=== PATIENT | female | born 1975 | race Caucasian/White ===

== ENCOUNTER → 2021-07-25 08:35 | Outpatient (ROUT) | payer MEDICARE, MEDICAID, SELFPAY ==
[2021-07-25 10:13] LABS: Add Manual Diff / Slide Review NO; Basophils Absolute Auto 0 /uL (0-100); Basophils Percent Auto 0.7 % (0-2); Eosinophils Absolute Auto 200 /uL (0-450); Eosinophils Percent Auto 2.5 % (2-4); Hematocrit 37.5 % (36-46); Hemoglobin 12.6 g/dL (12.0-16.0); Lymphocytes Absolute Auto 3200 /uL (1100-4500); Lymphocytes Percent Auto 43.6 % (25-40); Mean Corpuscular HGB Conc 33.5 % (30-36); Mean Corpuscular Hemoglobin 32.3 PG (26-34); Mean Corpuscular Volume 96.4 fL (80-100); Monocytes Absolute Auto 800 /uL (0-900); Monocytes Percent Auto 11.1 % (3-14); Neutrophils Absolute Auto 3100 /uL (1500-7000); Neutrophils Percent Auto 42.1 % (50-75); Platelet Count 333 X10^3/uL (150-400); Red Blood Cell Count 3.89 X10^6/uL (4.0-5.2); Red Cell Distribution Width 13.4 % (11.6-14.8); White Blood Cell Count 7.4 X10^3/uL (4.5-11.0)
[2021-07-25 10:28] LABS: Alanine Aminotransferase 13 IU/L (<35); Albumin 4.1 g/dL (3.5-5.0); Albumin Globulin Ratio 1.5 (1.0-2.8); Alkaline Phosphatase 45 U/L (38-126); Aspartate Aminotransferase 29 IU/L (14-36); BUN Creatinine Ratio 34.7 (6-22); Bilirubin Total 0.4 mg/dL (0.2-1.3); Blood Urea Nitrogen 17 mg/dL (7-17); Calcium 9.3 mg/dL (8.4-10.2); Carbon Dioxide 26 mmol/L (22-32); Chloride 103 mmol/L (98-107); Cholesterol 205 mg/dL (140-199); Estimated Glomerular Filt Rate > 60.0 mL/min (>60); Globulin 2.7 g/dL (1.7-4.1); Glucose 91 mg/dL (70-100); HDL Cholesterol 66 mg/dL (40-60); HEMOLYSIS < 15 (0-50); LDL Cholesterol Calculated 126 mg/dL (<100); Potassium 4.1 mmol/L (3.4-5.1); Sodium 137 mmol/L (137-145); Total Protein 6.8 g/dL (6.3-8.2); Triglycerides 66 mg/dL (35-150)
[2021-07-25 10:30] LABS: Iron 119 ug/dL (37-170)
[2021-07-26 06:41] LABS: Valproic Acid (Depakene) Total 64 ug/mL (50-100)
== END ==
PROVIDERS: Visit Provider Physician Assistant
DX: Z51.81 Encounter for therapeutic drug level monitoring (principal)
CPT/HCPCS: 36415; 80053; 80061; 80164; 83540; 85025

== ENCOUNTER 2021-07-31 11:40 | Emergency (ER) | payer MEDICARE, MEDICAID, SELFPAY ==
[2021-07-31] VITALS (11 sets, daily range): BP systolic 120–144; BP diastolic 64–70; PULSE 93–104; RESP 18–23; TEMP 37.6; O2SAT 94–98; BMI 28.0
--- NOTE | 2021-07-31 11:57 | DI.RAD.S_ITS ---
PROCEDURE: XR CHEST 1V INDICATIONS: chest pain TECHNIQUE: One view of the chest was acquired. COMPARISON: None. FINDINGS: Surgical changes and devices: None. Lungs and pleura: There is blunting of the left costophrenic angle. No pneumothorax is seen. No focal infiltrates are seen. The right lung appears clear. Mediastinum: Mediastinal contours appear normal. Heart size is normal. Bones and chest wall: No suspicious bony lesions. Overlying soft tissues appear unremarkable. IMPRESSION: Blunting of the left costophrenic angle is seen, which is attributed to a small pleural effusion. Dictated by: Krzysztof Ortiz M.D. on 07/31/2021 at 11:21 Approved by: Krzysztof Ortiz M.D. on 07/31/2021 at 11:22
[2021-07-31 12:08] LABS: Alanine Aminotransferase 14 IU/L (<35); Albumin 4.2 g/dL (3.5-5.0); Albumin Globulin Ratio 1.6 (1.0-2.8); Alkaline Phosphatase 54 U/L (38-126); Aspartate Aminotransferase 27 IU/L (14-36); Bilirubin Total 0.3 mg/dL (0.2-1.3); Blood Urea Nitrogen 17 mg/dL (7-17); Calcium 9.4 mg/dL (8.4-10.2); Carbon Dioxide 26 mmol/L (22-32); Chloride 101 mmol/L (98-107); Creatine Kinase 52 U/L (30-135); Estimated Glomerular Filt Rate > 60.0 mL/min (>60); Globulin 2.7 g/dL (1.7-4.1); Glucose 113 mg/dL (70-100); Lipase 94 U/L (23-300); Potassium 4.3 mmol/L (3.4-5.1); Sodium 133 mmol/L (137-145); Total Protein 6.9 g/dL (6.3-8.2)
[2021-07-31 12:09] LABS: Add Manual Diff / Slide Review NO; Basophils Absolute Auto 0 /uL (0-100); Basophils Percent Auto 0.3 % (0-2); Eosinophils Absolute Auto 200 /uL (0-450); Eosinophils Percent Auto 1.7 % (2-4); Hematocrit 37.8 % (36-46); Hemoglobin 12.4 g/dL (12.0-16.0); Lymphocytes Absolute Auto 3200 /uL (1100-4500); Lymphocytes Percent Auto 32.3 % (25-40); Mean Corpuscular HGB Conc 32.8 % (30-36); Mean Corpuscular Hemoglobin 31.7 PG (26-34); Mean Corpuscular Volume 96.5 fL (80-100); Monocytes Absolute Auto 1300 /uL (0-900); Monocytes Percent Auto 13.4 % (3-14); Neutrophils Absolute Auto 5200 /uL (1500-7000); Neutrophils Percent Auto 52.3 % (50-75); Platelet Count 430 X10^3/uL (150-400); Red Blood Cell Count 3.92 X10^6/uL (4.0-5.2); Red Cell Distribution Width 13.6 % (11.6-14.8)
[2021-07-31 12:10] LABS: HEMOLYSIS 59 (0-50)
[2021-07-31 12:20] LABS: Troponin I < 0.012 ng/mL (0.01-0.034)
--- NOTE | 2021-07-31 13:19 | ED_ITS ---
HPI - Chest Pain General Chief Complaint: Chest Pain Stated Complaint: Chest Pain Time Seen by Provider: 07/31/21 13:19 Source: patient and EMS Mode of arrival: EMS Limitations: no limitations History of Present Illness HPI narrative: Patient is a 45-year-old female history of cerebral palsy presenting today with chest discomfort which started sometime this morning. She says that the center of her chest it maybe radiates to her left arm. She overall appears comfortable but says pain is 10/10. She was given nitro by EMS which helped but pain has recurred. No known history of coronary artery disease Maalox and aspirin as well. She still states that she is uncomfortable but overall appears well. She denies any shortness breath, palpitations fever or chills. Related Data Allergies Allergy/AdvReac Type Severity Reaction Status Date / Time No Known Drug Allergies Allergy Verified 07/31/21 11:53 Review of Systems Review of Systems Narrative: GENERAL: Denies chills, fatigue, malaise, fever, sweats, travel HEENT: Denies sinus pain, ear pain, sore throat, difficulty swallowing, neck pain RESPIRATORY: Denies dyspnea, cough, wheezing, hemoptysis, sputum. CARDIOVASCULAR: Denies chest pain, palpitations, orthopnea, edema GASTROINTESTINAL: Denies nausea, vomiting, abdominal pain, diarrhea, constipation, melena. : Denies dysuria, frequency, incontinence, hematuria, urinary retention, flank pain. MUSCULOSKELETAL: Denies weakness, joint pain, or bony pain SKIN: No rash, no erythema, no pruritus NEUROLOGIC: Denies weakness, dizziness, headache, numbness, change in speech, confusion PSYCHIATRIC: No concerning psychosocial issues. 12 point review of systems is negative except for those stated above and HPI Patient History Social History Smoking Status: Never smoker Smoking Status: Never smoker Substance Use Type: does not use Exam Initial Vital Signs Initial Vital Signs: Vital Signs Pulse Rate 100 H 07/31/21 11:47 Pulse Oximetry 98 07/31/21 11:47 GENERAL: 45-year-old female awake alert but does have cerebral palsy features HEENT: Head atraumatic,EOMI, pupils reactive, face symmetric, moist mucous membranes CARDIOVASCULAR: Regular rate and rhythm without murmurs, rubs or gallops. RESPIRATORY: Breath sounds equal bilaterally, no wheezes rales or rhonchi. ABDOMEN: Soft, nontender. Normoactive bowel sounds all 4 quadrants. No guarding or rebound. EXTREMITIES: Normal range of motion, no clubbing or edema. Neurovascularly intact NEUROLOGICAL: No cranial nerve deficits at the baseline SKIN: Warm, dry, no laceration, no petechiae, no rashes or lesions. Scores HEART Score Heart Score history: Slightly Suspicious Heart Score EKG: Normal Heart Score Age: < 45 years old Heart Score risk factors: No known risk factors Heart Score troponin: < or = to normal limit Heart Score Total: 0 Course Orders Ordered: ED Orders 07/31/21 11:49 EKG-12 Lead Stat 07/31/21 11:57 XR chest 1V Stat 07/31/21 13:40 Troponin I Stat Discontinued Medications Ketorolac Tromethamine (Ketorolac 30 Mg/Ml Vial) 30 mg IV NOW ONE Stop: 07/31/21 13:31 Last Admin: 07/31/21 13:35 Dose: 30 mg Documented by: BRYANNA Vital Signs Vital signs: Vital Signs - 8 hr 07/31/21 13:00 07/31/21 13:30 07/31/21 14:00 Temperature Pulse Rate 94 H 95 H 96 H Respiratory Rate 19 19 23 Blood Pressure 130/64 127/66 120/70 Pulse Oximetry 96 97 97 07/31/21 14:30 07/31/21 15:00 07/31/21 15:31 Temperature 99.7 F H Pulse Rate 93 H 93 H 99 H Respiratory Rate 20 23 18 Blood Pressure 134/70 129/66 129/66 Pulse Oximetry 94 97 97 MDM - Chest Pain Lab Data Result diagrams: 07/31/21 11:40 07/31/21 11:40 Labs: Lab Results 07/31/21 07/31/21 07/31/21 Range/Units 11:40 11:40 13:40 WBC 10.0 (4.5-11.0) X10^3/uL RBC 3.92 L (4.0-5.2) X10^6/uL Hgb 12.4 (12.0-16.0) g/dL Hct 37.8 (36-46) % MCV 96.5 (80-100) fL MCH 31.7 (26-34) PG MCHC 32.8 (30-36) % RDW 13.6 (11.6-14.8) % Plt Count 430 H (150-400) X10^3/uL Neut % (Auto) 52.3 (50-75) % Lymph % (Auto) 32.3 (25-40) % [place] % (Auto) 13.4 (3-14) % Eos % (Auto) 1.7 L (2-4) % Baso % (Auto) 0.3 (0-2) % Neut # (Auto) 5200 (7696-1196) /uL Lymph # (Auto) 3200 (2325-1172) /uL [place] # (Auto) 1300 H (0-900) /uL Eos # (Auto) 200 (0-450) /uL Baso # (Auto) 0 (0-100) /uL Sodium 133 L (137-145) mmol/L Potassium 4.3 (3.4-5.1) mmol/L Chloride 101 (98-107) mmol/L Carbon Dioxide 26 (22-32) mmol/L BUN 17 (7-17) mg/dL Creatinine 0.50 L (0.52-1.04) mg/dL Estimated GFR > 60.0 (>60) mL/min BUN/Creatinine Ratio 34.0 H (6-22) Glucose 113 H (70-100) mg/dL Calcium 9.4 (8.4-10.2) mg/dL Total Bilirubin 0.3 (0.2-1.3) mg/dL AST 27 (14-36) IU/L ALT 14 (<35) IU/L Alkaline Phosphatase 54 (38-126) U/L Total Creatine Kinase 52 (30-135) U/L CK-MB (CK-2) TNP CK-MB (CK-2) Rel Index TNP Troponin I < 0.012 < 0.012 (0.01-0.034) ng/mL Total Protein 6.9 (6.3-8.2) g/dL Albumin 4.2 (3.5-5.0) g/dL Globulin 2.7 (1.7-4.1) g/dL Albumin/Globulin Ratio 1.6 (1.0-2.8) Lipase 94 (23-300) U/L Imaging Data Chest x-ray: Radiologist's Impression: PROCEDURE:? XR CHEST 1V ? INDICATIONS:? chest pain ? TECHNIQUE:? One view of the chest was acquired.? ? COMPARISON:? None. ? FINDINGS:? ? Surgical changes and devices:? None.? ? Lungs and pleura:? There is blunting of the left costophrenic angle.? No pneumothorax is seen.? No focal infiltrates are seen.? The right lung appears clear.? ? Mediastinum:? Mediastinal contours appear normal.? Heart size is normal.? ? Bones and chest wall:? No suspicious bony lesions.? Overlying soft tissues appear unremarkable.? IMPRESSION:? Blunting of the left costophrenic angle is seen, which is attributed to a small pleural effusion. ? ? Dictated by: Krzysztof Ortiz M.D. on 07/31/2021 at 11:21 ? ? ECG Data Interpretation: EKG 1. Had sinus rhythm rate 99 here 118 QRS [address] changes or T-wave inversions EKG 2. Sinus rhythm rate 97 UT interval 110 QRS [address] changes similar to prior MDM Narrative Medical decision making narrative: Patient has 2- troponins she is overall low risk. She does not appear in any discomfort she is given Toradol which does seem to help. At this time recommend outpatient follow-up. Discharge Plan Departure Patient Disposition: Home Clinical Impression: Atypical chest pain Instructions: DI for Atypical Chest Pain Activity Restrictions/Additional Instructions: *You have been diagnosed with atypical chest pain *What to do: This time blood work and EKG were overall reassuring. He may need more testing with your primary doctor. *Continue to take medications as directed *Follow up with your primary care provider in 2-3 days *Return to ER if you should have increasing chest pain, shortness of breath, palpitation any new, worsening or concerning symptoms
[2021-07-31] MEDS: KETOROLAC 30 MG/ML VIAL IV (13:35)
[2021-07-31 14:12] LABS: Troponin I < 0.012 ng/mL (0.01-0.034)
== END 2021-07-31 15:34 | disposition home or self-care (01) ==
PROVIDERS: Emergency Provider Emergency Medicine
DX: R07.89 Other chest pain (principal)
CPT/HCPCS: 36415; 71045; 80053; 82550; 83690; 84484; 85025; 93005; 96374; 99283; 99284; J1885

== ENCOUNTER → 2021-10-04 12:55 | Outpatient (ROUT) | payer MEDICARE, MEDICAID, SELFPAY ==
[2021-10-04 14:19] LABS: COVID-19 CEPHEID PCR (VTM/NP) POSITIVE (Negative)
== END ==
PROVIDERS: Visit Provider Internal Medicine
DX: U07.1 COVID-19 (principal)
CPT/HCPCS: U0003

== ENCOUNTER 2022-01-22 12:26 | Emergency (ER) | payer MEDICARE, MEDICAID, SELFPAY ==
[2022-01-22] VITALS (9 sets, daily range): BP systolic 135–143; BP diastolic 67–73; PULSE 79–98; RESP 18; TEMP 36.6; O2SAT 99–100
--- NOTE | 2022-01-22 14:23 | ED_ITS ---
HPI - Fall <Maury Savage PA-C - Last Filed: 01/22/22 14:35> General Chief Complaint: Fall Stated Complaint: assited fall Time Seen by Provider: 01/22/22 13:24 Source: EMS Mode of arrival: EMS History of Present Illness HPI Narrative: 46-year-old female with a history of cerebral palsy presents to the ED status post a head injury sustained just prior to arrival. Patient states she suffered a witnessed fall, witnessed by her caregiver Nasra. Patient describes the fall as a mechanical fall, denies feeling lightheaded or dizzy prior to the fall. Patient states she fell from a standing position and hit the left side of her head. Patient denies loss of consciousness, nausea, vomiting. Patient denies being on blood thinners. Patient denies chest pain, shortness of breath. Patient does endorse some pain at the site of the injury. Last tetanus unknown. Related Data Allergies Allergy/AdvReac Type Severity Reaction Status Date / Time No Known Drug Allergies Allergy Verified 01/22/22 12:34 Review of Systems <Maury Savage PA-C - Last Filed: 01/22/22 14:35> Review of Systems ROS Unobtainable: All systems reviewed & are unremarkable except as noted in HPI and below Constitutional Constitutional: Denies chills, Denies fatigue, Denies fever(s), Denies frequent falls, Denies lethargy and Denies weakness Eyes Eyes: Denies change in vision, Denies eye discharge, Denies irritation and Denies loss of vision ENT Ears, Nose, Mouth, and Throat: Denies change in voice, Denies dizziness, Denies neck pain, Denies sore throat and Denies throat swelling Cardiovascular Cardiovascular: Denies chest pain, Denies irregular heart rhythm, Denies li ghtheadedness, Denies palpitations, Denies dyspnea, Denies dyspnea on exertion and Denies orthopnea Respiratory Respiratory: Denies cough, Denies dyspnea, Denies dyspnea on exertion and Denies wheezing Gastrointestinal Gastrointestinal: Denies abdominal pain, Denies change in bowel habits, Denies diarrhea, Denies nausea and Denies vomiting Genitourinary Genitourinary: Denies hematuria, Denies flank pain, Denies urinary incontinence and Denies urinary urgency Musculoskeletal Musculoskeletal: Denies back pain, Denies muscle weakness, Denies neck pain, Denies numbness and Denies tingling Integumentary/Breasts Skin/Breast: Denies pruritus, Denies erythema, Denies rash and Denies wounds Comments: R sided scalp laceration, pain at site. Neurologic Neurologic: Denies behavioral changes, Denies confusion, Denies dizziness, Denies frequent falls, Denies loss of vision, Denies numbness, Denies tingling and Denies weakness Psychiatric Psychiatric: Denies anxiety, Denies behavioral changes, Denies confusion, Denies depression, Denies homicidal ideation and Denies suicidal ideation Endocrine Endocrine: Denies fatigue, Denies flushing and Denies palpitations Hematologic/Lymphatic Hematologic/Lymphatic: Denies easy bruising Allergic/Immunologic Allergic/Immunologic: Denies urticaria, Denies throat swelling and Denies wheezing Patient History <Maury Savage PA-C - Last Filed: 01/22/22 14:35> Social History Smoking Status: Never smoker Smoking Status: Never smoker Substance Use Type: does not use Exam <Maury Savage PA-C - Last Filed: 01/22/22 14:35> Narrative Exam Narrative: 1 cm scalp laceration to parietal right scalp. No skull depressions, no raccoon sign, no Gibson sign, no rhinorrhea. Neurologically intact. Initial Vital Signs Initial Vital Signs: Vital Signs Blood Pressure 135/71 01/22/22 12:30 Const General: cooperative, healthy appearing and comfortable Neck Neck: normal visual inspection Resp Effort & Inspection: normal respiratory effort Auscultation: clear to auscultation bilaterally Cardio Rate: regular rate Rhythm: regular rhythm Back/Spine/Pelvis Back: normal to inspection Other: No midline tenderness to palpation. Neuro General: patient alert, patient awake and patient oriented x3 Psych Appearance: grossly normal Mental Status: mental status grossly normal <Ijeoma Biggs DO - Last Filed: 01/27/22 09:09> Initial Vital Signs Initial Vital Signs: Vital Signs Blood Pressure 135/71 01/22/22 12:30 Procedures <Maury Savage PA-C - Last Filed: 01/22/22 14:35> Laceration Repair Laceration 1: Site: scalp Side (If applicable): right Size (cm): 1 Description: linear Depth: simple, single layer Skin layer closed with: joyce Number of sutures: 3 Course <Maury Savage PA-C - Last Filed: 01/22/22 14:35> Orders Ordered: Discontinued Medications Acetaminophen (Acetaminophen 325 Mg Tablet) 975 mg PO NOW ONE Stop: 01/22/22 14:16 Last Admin: 01/22/22 14:25 Dose: 975 mg Documented by: PRAVEEN Diphtheria/Tetanus/Acell Pertussis (Diph,Pertuss(Acell),Tet Vac/Pf 0.5 Ml Syringe) 0.5 ml IM .ONCE ONE Stop: 01/22/22 14:16 Last Admin: 01/22/22 14:26 Dose: Not Given Documented by: LAI Diphtheria/Tetanus/Acell Pertussis (Tet,Diph,Pertuss(Acell),Vac/Pf 0.5 Ml Syringe) 0.5 ml IM .ONCE ONE Stop: 01/22/22 14:27 Last Admin: 01/22/22 14:28 Dose: 0.5 ml Documented by: PRAVEEN Vital Signs Vital signs: Vital Signs - 8 hr 01/22/22 12:30 01/22/22 12:31 01/22/22 12:32 Temperature 97.8 F Pulse Rate 89 85 Respiratory Rate 18 Blood Pressure 135/71 135/71 Pulse Oximetry 100 99 01/22/22 13:00 01/22/22 13:30 01/22/22 13:58 Temperature Pulse Rate 82 79 81 Respiratory Rate Blood Pressure 136/73 Pulse Oximetry 99 100 100 <Ijeoma Biggs DO - Last Filed: 01/27/22 09:09> Orders Ordered: Discontinued Medications Acetaminophen (Acetaminophen 325 Mg Tablet) 975 mg PO NOW ONE Stop: 01/22/22 14:16 Last Admin: 01/22/22 14:25 Dose: 975 mg Documented by: PRAVEEN Diphtheria/Tetanus/Acell Pertussis (Diph,Pertuss(Acell),Tet Vac/Pf 0.5 Ml Syringe) 0.5 ml IM .ONCE ONE Stop: 01/22/22 14:16 Last Admin: 01/22/22 14:26 Dose: Not Given Documented by: LAI Diphtheria/Tetanus/Acell Pertussis (Tet,Diph,Pertuss(Acell),Vac/Pf 0.5 Ml Syringe) 0.5 ml IM .ONCE ONE Stop: 01/22/22 14:27 Last Admin: 02/28/22 14:28 Dose: 0.5 ml Documented by: PRAVEEN Vital Signs Vital signs: Vital Signs - 8 hr 01/22/22 12:30 01/22/22 12:31 01/22/22 12:32 Temperature 97.8 F Pulse Rate 89 85 Respiratory Rate 18 Blood Pressure 135/71 135/71 Pulse Oximetry 100 99 01/22/22 13:00 01/22/22 13:30 01/22/22 13:58 Temperature Pulse Rate 82 79 81 Respiratory Rate Blood Pressure 136/73 Pulse Oximetry 99 100 100 MDM - Fall <Maury Savage PA-C - Last Filed: 01/22/22 14:35> [facility] Narrative Medical decision making narrative: 46-year-old female with a history of cerebral palsy presents to the ED status post a head injury sustained just prior to arrival. No indications for head CT per [facility] head CT rules. No further workup indicated, given mechanical nature a fall. Will update tetanus. Will repair laceration with joyce. Will discharge home with ED return precautions and instructions for staple removal. Discharge Plan Departure Patient Disposition: Home Clinical Impression: Laceration Instructions: DI for Laceration Repair of the Scalp, How to Prevent Falls Activity Restrictions/Additional Instructions: You were evaluated in the ED today for a scalp laceration. Your laceration was repaired with joyce. Two joyce will need to be removed in 7 days. You can return to the ED or see your PCP or go to an Urgent Care for staple removal. Watch for signs of infections including redness, swelling, discharge, warmth, pain at the site of the laceration. Return to the ED if your symptoms worsen, you experience uncontrollable nausea and vomiting, headache, lethargy, signs of infection. <Ijeoma Biggs DO - Last Filed: 01/27/22 09:09> Cosign ED Attending Abbyature Attestation: I was immediately available in the department for consultation. Documentation has been reviewed.
[2022-01-22] MEDS: ACETAMINOPHEN 325 MG TABLET 975 MG PO (14:25)
[2022-01-22] MEDS: TET,DIPH,PERTUSS(ACELL),VAC/PF 0.5 ML SYRINGE IM (14:28)
== END 2022-01-22 15:06 | disposition home or self-care (01) ==
PROVIDERS: Emergency Provider Student in an Organized Health Care Education/Training Program
DX: S01.01XA Laceration without foreign body of scalp, initial encounter (principal); W18.30XA Fall on same level, unspecified, initial encounter; Z23 Encounter for immunization
CPT/HCPCS: 12001; 90471; 99283; 90715

== ENCOUNTER 2022-02-21 07:54 | Emergency (ER) | payer MEDICARE, MEDICAID, SELFPAY ==
[2022-02-21] VITALS (20 sets, daily range): BP systolic 115–147; BP diastolic 64–78; PULSE 80–93; RESP 16; TEMP 36.1; O2SAT 96–100
--- NOTE | 2022-02-21 08:23 | ED.DIZZY ---
HPI - Dizziness General Chief Complaint: Dizziness Stated Complaint: Fall Time Seen by Provider: 02/21/22 08:11 Source: patient and EMS Mode of arrival: EMS History of Present Illness HPI Narrative: Patient brought in by ambulance from [facility]. Patient awoke this morning and got up to get dressed and feel dizzy. She fell on the floor, complains of left anterior lateral rib pain. Denies denies any other pain or injury. No longer dizzy. Never had chest pain or palpitations. Denies any recent illness nausea vomiting diarrhea. No fluid losses. Has been maintaining her oral intake. She is awake alert oriented x4. She uses a walker for ambulation. Related Data Allergies Allergy/AdvReac Type Severity Reaction Status Date / Time No Known Drug Allergies Allergy Verified 01/22/22 12:34 Review of Systems Review of Systems Narrative: GENERAL: Denies chills, fatigue, malaise, fever, sweats. HEENT: Denies sinus pain, ear pain, sore throat RESPIRATORY: Denies dyspnea, cough CARDIOVASCULAR: Denies chest pain, palpitations GASTROINTESTINAL: Denies nausea, vomiting, abdominal pain : Denies dysuria, frequency, hematuria MUSCULOSKELETAL: Positive for muscle or bony pain SKIN: Denies rash, skin lesions NEUROLOGIC: Denies weakness, numbness, positive for dizziness ROS Unobtainable: All systems reviewed & are unremarkable except as noted in HPI and below Patient History Social History Smoking Status: Never smoker Smoking Status: Never smoker Substance Use Type: does not use Exam Narrative Exam Narrative: GENERAL: in no distress, not toxic not dyspneic HEAD: Normocephalic. EYES: Pupils equal round No scleral icterus. ENT: Mucous membranes moist. NECK: Trachea midline. No midline tenderness or step-off of the cervical spine. CARDIOVASCULAR: Regular rate and rhythm without murmurs, reproducible left lower anterior ribs. No skin injury or bruising seen. No crepitus or flail RESPIRATORY: Clear to auscultation. Breath sounds equal bilaterally. No wheezes, rales, or rhonchi. GASTROINTESTINAL: Abdomen soft, non-tender EXTREMITIES: No gross deformities. Nontender bilateral shoulders elbows wrists pelvis hips knees and ankles. BACK: No flank tenderness. No midline tenderness or step-off of the thoracic or lumbar spine. No skin injury seen. NEURO: AOx4. SKIN: Warm and dry PSYCH: Not anxious, is cooperative Initial Vital Signs Initial Vital Signs: Vital Signs Temperature 97.0 F L 02/21/22 08:04 Pulse Rate 85 02/21/22 08:04 Respiratory Rate 16 02/21/22 08:04 Blood Pressure 137/75 02/21/22 08:04 Pulse Oximetry 97 02/21/22 08:04 Course Course Course Narrative: No new issues during course of stay Orders Ordered: ED Orders 02/21/22 08:13 EKG-12 Lead Stat 02/21/22 08:24 XR ribs LT min 3V w CXR1V Stat 02/21/22 08:45 Complete Blood Count AUTO DIFF Stat Comprehensive Metabolic Panel Stat Troponin I Stat Discontinued Medications Sodium Chloride (Normal Saline 0.9%) 1,000 mls @ 1,000 mls/hr IV BOLUS ONE Stop: 02/21/22 09:58 Last Infusion: 02/21/22 13:16 Dose: 0 mls/hr Documented by: Admin: 02/21/22 09:12 Dose: 1,000 mls/hr Documented by: BTONER Reevaluation(s) Reevaluation #1: Patient feeling much better. No new complaints. Reviewed results with her. Patient did have changes on her orthostatics when measured. IV fluids given. She desires discharge home. Pain is controlled. Nurses had difficulty with in and out catheterization. She does not want re-attempt. She denies denies any urinary complaints. No dysuria or frequency. Time: 13:16 Vital Signs Vital signs: Vital Signs - 8 hr 02/21/22 08:04 02/21/22 09:14 02/21/22 09:20 Temperature 97.0 F L Pulse Rate 85 84 Pulse Rate [Orthostatic Lying] 80 Pulse Rate [Orthostatic Sitting] 81 Pulse Rate [Orthostatic Standing] 91 H Respiratory Rate 16 Blood Pressure 137/75 Blood Pressure [Orthostatic Lying] 131/75 Blood Pressure [Orthostatic Sitting] 120/66 Blood Pressure [Orthostatic Standing] 115/64 Pulse Oximetry 97 97 02/21/22 09:21 02/21/22 09:30 02/21/22 10:00 Temperature Pulse Rate 83 83 84 Pulse Rate [Orthostatic Lying] Pulse Rate [Orthostatic Sitting] Pulse Rate [Orthostatic Standing] Respiratory Rate Blood Pressure 124/75 131/78 129/72 Blood Pressure [Orthostatic Lying] Blood Pressure [Orthostatic Sitting] Blood Pressure [Orthostatic Standing] Pulse Oximetry 97 97 98 02/21/22 10:30 02/21/22 11:00 02/21/22 11:30 Temperature Pulse Rate 81 83 85 Pulse Rate [Orthostatic Lying] Pulse Rate [Orthostatic Sitting] Pulse Rate [Orthostatic Standing] Respiratory Rate Blood Pressure 127/75 122/72 131/78 Blood Pressure [Orthostatic Lying] Blood Pressure [Orthostatic Sitting] Blood Pressure [Orthostatic Standing] Pulse Oximetry 97 96 97 02/21/22 11:37 02/21/22 11:38 02/21/22 11:40 Temperature Pulse Rate 92 H Pulse Rate [Orthostatic Lying] Pulse Rate [Orthostatic Sitting] Pulse Rate [Orthostatic Standing] Respiratory Rate Blood Pressure 127/75 130/71 Blood Pressure [Orthostatic Lying] Blood Pressure [Orthostatic Sitting] Blood Pressure [Orthostatic Standing] Pulse Oximetry 97 02/21/22 11:51 02/21/22 12:00 02/21/22 12:46 Temperature Pulse Rate 87 86 93 H Pulse Rate [Orthostatic Lying] Pulse Rate [Orthostatic Sitting] Pulse Rate [Orthostatic Standing] Respiratory Rate Blood Pressure 144/67 H 139/68 Blood Pressure [Orthostatic Lying] Blood Pressure [Orthostatic Sitting] Blood Pressure [Orthostatic Standing] Pulse Oximetry 99 98 99 02/21/22 12:47 02/21/22 13:00 02/21/22 13:01 Temperature Pulse Rate 88 80 84 Pulse Rate [Orthostatic Lying] Pulse Rate [Orthostatic Sitting] Pulse Rate [Orthostatic Standing] Respiratory Rate Blood Pressure 147/72 H 133/76 Blood Pressure [Orthostatic Lying] Blood Pressure [Orthostatic Sitting] Blood Pressure [Orthostatic Standing] Pulse Oximetry 100 100 100 02/21/22 13:30 02/21/22 13:40 Temperature Pulse Rate 86 88 Pulse Rate [Orthostatic Lying] Pulse Rate [Orthostatic Sitting] Pulse Rate [Orthostatic Standing] Respiratory Rate Blood Pressure 139/77 139/76 Blood Pressure [Orthostatic Lying] Blood Pressure [Orthostatic Sitting] Blood Pressure [Orthostatic Standing] Pulse Oximetry 100 100 MDM - Dizziness Differential Diagnosis Differential diagnosis: Likely orthostatic hypotension and other (Vasovagal dizziness. Rib contusion.) Lab Data Result diagrams: 02/21/22 08:45 02/21/22 08:45 Labs: Lab Results 02/21/22 02/21/22 02/21/22 Range/Units 08:45 08:45 08:45 WBC 8.6 (4.5-11.0) X10^3/uL RBC 4.33 (4.0-5.2) X10^6/uL Hgb 13.4 (12.0-16.0) g/dL Hct 40.2 (36-46) % MCV 92.9 (80-100) fL MCH 30.9 (26-34) PG MCHC 33.2 (30-36) % RDW 13.8 (11.6-14.8) % Plt Count 373 (150-400) X10^3/uL Neut % (Auto) 57.3 (50-75) % Lymph % (Auto) 28.6 (25-40) % [place] % (Auto) 12.1 (3-14) % Eos % (Auto) 1.7 L (2-4) % Baso % (Auto) 0.3 (0-2) % Neut # (Auto) 4900 (8789-0618) /uL Lymph # (Auto) 2500 (6973-5531) /uL [place] # (Auto) 1000 H (0-900) /uL Eos # (Auto) 100 (0-450) /uL Baso # (Auto) 0 (0-100) /uL Sodium 138 (137-145) mmol/L Potassium 4.1 (3.4-5.1) mmol/L Chloride 102 (98-107) mmol/L Carbon Dioxide 29 (22-32) mmol/L BUN 18 H (7-17) mg/dL Creatinine 0.56 (0.52-1.04) mg/dL Estimated GFR > 60.0 (>60) mL/min BUN/Creatinine Ratio 32.1 H (6-22) Glucose 99 (70-100) mg/dL Calcium 10.1 (8.4-10.2) mg/dL Total Bilirubin 0.4 (0.2-1.3) mg/dL AST 22 (14-36) IU/L ALT 11 (<35) IU/L Alkaline Phosphatase 59 (38-126) U/L Troponin I < 0.012 (0.01-0.034) ng/mL Total Protein 7.6 (6.3-8.2) g/dL Albumin 4.5 (3.5-5.0) g/dL Globulin 3.1 (1.7-4.1) g/dL Albumin/Globulin Ratio 1.5 (1.0-2.8) Imaging Data Chest x-ray: Radiologist's Impression: [address] [address] XRay Report Signed Patient: Jeni Collins MR#: [id number] : 1975 Acct:[id number] Age/Sex: 46 / F Date of Service: 02/21/22 Loc: ED Accession Number: [id number] ?? Procedure: XR ribs LT min 3V w CXR1V Ordering Provider: Ryan Landis MD PROCEDURE:? XR RIBS LT MIN 3V W CXR1V ? INDICATIONS:? Fall/pain ? TECHNIQUE:? 2 views of the left ribs were acquired, along with a single view chest.? ? COMPARISON:? None. ? FINDINGS:? ? Surgical changes and devices:? None.? ? Bones and chest wall:? No acute displaced rib fracture.? Mild respiratory motion is noted on dedicated rib views.? No suspicious bony lesions.? Overlying soft tissues appear unremarkable.? ? Lungs and pleura:? No pleural effusions or pneumothorax.? Lungs appear clear.? ? Mediastinum:? Mediastinal contours appear normal.? Heart size is normal.? ? IMPRESSION:? No acute displaced rib fracture.? No pneumothorax. ? ? Dictated by: Tin Ball M.D. on 02/21/2022 at 8:40 ? ? Approved by: Tin Ball M.D. on 02/21/2022 at 8:42 ? ECG Data Interpretation: Sinus rhythm. Rate 83, no ST elevation or depression. Otherwise normal EKG MDM Narrative Medical decision making narrative: Appropriate for discharge home. Exam and laboratory studies and imaging are reassuring. Patient episode likely vasovagal episode as she just got up from bed for the the morning/day and immediately felt lightheaded. No other complaints. No chest pain no headache. No numbness or tingling. She is awake alert oriented x4. Return precautions reviewed with her. She does desire discharge home. Orthostatics noted. There was decrease in systolic with elevation in heart rate. Normal saline IV bolus given. Symptoms likely be due to orthostatic hypotension/vasovagal episode Discharge Plan Departure Patient Disposition: Home Clinical Impression: Vasovagal episode, Contusion of rib on left side Instructions: DI for Rib Contusion, DI for Dizziness-Nonvertigo Activity Restrictions/Additional Instructions: Return if worse if any questions or concerns. May continue home medications. Be sure to keep well hydrated. See family doctor this week for recheck. May continue Tylenol or ibuprofen for your rib pain.
--- NOTE | 2022-02-21 08:24 | DI.RAD.S_ITS ---
PROCEDURE: XR RIBS LT MIN 3V W CXR1V INDICATIONS: Fall/pain TECHNIQUE: 2 views of the left ribs were acquired, along with a single view chest. COMPARISON: None. FINDINGS: Surgical changes and devices: None. Bones and chest wall: No acute displaced rib fracture. Mild respiratory motion is noted on dedicated rib views. No suspicious bony lesions. Overlying soft tissues appear unremarkable. Lungs and pleura: No pleural effusions or pneumothorax. Lungs appear clear. Mediastinum: Mediastinal contours appear normal. Heart size is normal. IMPRESSION: No acute displaced rib fracture. No pneumothorax. Dictated by: Tin Ball M.D. on 02/21/2022 at 8:40 Approved by: Tin Ball M.D. on 02/21/2022 at 8:42
[2022-02-21 09:04] LABS: Add Manual Diff / Slide Review NO; Basophils Absolute Auto 0 /uL (0-100); Basophils Percent Auto 0.3 % (0-2); Eosinophils Absolute Auto 100 /uL (0-450); Eosinophils Percent Auto 1.7 % (2-4); Hematocrit 40.2 % (36-46); Hemoglobin 13.4 g/dL (12.0-16.0); Lymphocytes Absolute Auto 2500 /uL (1100-4500); Lymphocytes Percent Auto 28.6 % (25-40); Mean Corpuscular HGB Conc 33.2 % (30-36); Mean Corpuscular Hemoglobin 30.9 PG (26-34); Mean Corpuscular Volume 92.9 fL (80-100); Monocytes Absolute Auto 1000 /uL (0-900); Monocytes Percent Auto 12.1 % (3-14); Neutrophils Absolute Auto 4900 /uL (1500-7000); Neutrophils Percent Auto 57.3 % (50-75); Platelet Count 373 X10^3/uL (150-400); Red Blood Cell Count 4.33 X10^6/uL (4.0-5.2); Red Cell Distribution Width 13.8 % (11.6-14.8); White Blood Cell Count 8.6 X10^3/uL (4.5-11.0)
[2022-02-21] MEDS: SODIUM CHLORIDE 0.9% 1,000 ML 1000 ML IV (09:12)
[2022-02-21 09:18] LABS: Alanine Aminotransferase 11 IU/L (<35); Albumin 4.5 g/dL (3.5-5.0); Albumin Globulin Ratio 1.5 (1.0-2.8); Alkaline Phosphatase 59 U/L (38-126); Aspartate Aminotransferase 22 IU/L (14-36); BUN Creatinine Ratio 32.1 (6-22); Bilirubin Total 0.4 mg/dL (0.2-1.3); Blood Urea Nitrogen 18 mg/dL (7-17); Calcium 10.1 mg/dL (8.4-10.2); Carbon Dioxide 29 mmol/L (22-32); Chloride 102 mmol/L (98-107); Estimated Glomerular Filt Rate > 60.0 mL/min (>60); Globulin 3.1 g/dL (1.7-4.1); Glucose 99 mg/dL (70-100); HEMOLYSIS 17 (0-50); Potassium 4.1 mmol/L (3.4-5.1); Sodium 138 mmol/L (137-145); Total Protein 7.6 g/dL (6.3-8.2)
[2022-02-21 09:29] LABS: Troponin I < 0.012 ng/mL (0.01-0.034)
== END 2022-02-21 13:56 | disposition home or self-care (01) ==
PROVIDERS: Emergency Provider Emergency Medicine
DX: R55 Syncope and collapse (principal); S20.212A Contusion of left front wall of thorax, initial encounter; W19.XXXA Unspecified fall, initial encounter; Y93.89 Activity, other specified
CPT/HCPCS: 36415; 71101; 80053; 84484; 85025; 93005; 96360; 96361; 99284

== ENCOUNTER → 2022-03-13 07:39 | Outpatient (ROUT) | payer MEDICARE, MEDICAID, SELFPAY ==
[2022-03-13 08:08] LABS: Add Manual Diff / Slide Review NO; Basophils Absolute Auto 0 /uL (0-100); Basophils Percent Auto 0.5 % (0-2); Eosinophils Absolute Auto 200 /uL (0-450); Eosinophils Percent Auto 2.2 % (2-4); Hematocrit 36.4 % (36-46); Hemoglobin 12.4 g/dL (12.0-16.0); Lymphocytes Absolute Auto 2800 /uL (1100-4500); Mean Corpuscular Hemoglobin 31.5 PG (26-34); Mean Corpuscular Volume 92.6 fL (80-100); Monocytes Absolute Auto 800 /uL (0-900); Neutrophils Absolute Auto 3500 /uL (1500-7000); Neutrophils Percent Auto 48.3 % (50-75); Platelet Count 372 X10^3/uL (150-400); Red Blood Cell Count 3.93 X10^6/uL (4.0-5.2); Red Cell Distribution Width 13.8 % (11.6-14.8); White Blood Cell Count 7.3 X10^3/uL (4.5-11.0)
[2022-03-13 08:27] LABS: Alanine Aminotransferase 12 IU/L (<35); Albumin 3.9 g/dL (3.5-5.0); Albumin Globulin Ratio 1.4 (1.0-2.8); Alkaline Phosphatase 50 U/L (38-126); Amylase 78 U/L (30-110); Aspartate Aminotransferase 19 IU/L (14-36); BUN Creatinine Ratio 26.4 (6-22); Bilirubin Total 0.4 mg/dL (0.2-1.3); Blood Urea Nitrogen 14 mg/dL (7-17); Calcium 8.9 mg/dL (8.4-10.2); Carbon Dioxide 28 mmol/L (22-32); Chloride 106 mmol/L (98-107); Estimated Glomerular Filt Rate > 60 mL/min (>60); Globulin 2.7 g/dL (1.7-4.1); Glucose 98 mg/dL (70-100); HEMOLYSIS < 15 (0-50); Lipase 50 U/L (23-300); Sodium 139 mmol/L (137-145); Total Protein 6.6 g/dL (6.3-8.2)
== END ==
PROVIDERS: Visit Provider Nurse Practitioner Gerontology
DX: R10.9 Unspecified abdominal pain (principal)
CPT/HCPCS: 36415; 80053; 82150; 83690; 85025

== ENCOUNTER → 2022-05-01 08:36 | Outpatient (ROUT) | payer MEDICARE, MEDICAID, SELFPAY ==
[2022-05-02 07:33] LABS: Valproic Acid (Depakene) Total 80 ug/mL (50-100)
== END ==
PROVIDERS: Visit Provider Nurse Practitioner Gerontology
DX: E40 Kwashiorkor (principal)
CPT/HCPCS: 36415; 80164

== ENCOUNTER 2022-07-05 08:02 | Emergency (ER) | payer MEDICARE, MEDICAID, SELFPAY ==
[2022-07-05] VITALS (10 sets, daily range): BP systolic 130–144; BP diastolic 60–76; PULSE 84–93; RESP 18; TEMP 36.6; O2SAT 97–98; BMI 24.5
--- NOTE | 2022-07-05 08:25 | ED_ITS ---
HPI - Head Injury General Chief complaint: Head Injury Stated complaint: Head pain Time Seen by Provider: 07/05/22 08:16 Source: patient Mode of arrival: EMS Limitations: no limitations History of Present Illness HPI Narrative: This is a 46-year-old female with history of cerebral palsy and seizures who presents after having fall yesterday. She lives at a facility they had been outside yesterday and she tripped on a curb and hit her head. She indicates it was the left back of her head. She states a little bit of a headache today. She defers anything for headache at this time. Denies any loss of conscious ness. Some slightly blurred vision. No neck pain, no chest pain, back pain, no nausea or vomiting. No new GI or urinary symptoms. Patient has not had any other neurologic changes. Patient denies any other injuries. Patient is not on any anticoagulation. She does take medication for seizures. No known drug allergies. Related Data Allergies Allergy/AdvReac Type Severity Reaction Status Date / Time No Known Drug Allergies Allergy Verified 01/22/22 12:34 Review of Systems Review of Systems ROS Unobtainable: All systems reviewed & are unremarkable except as noted in HPI and below Patient History Social History Smoking Status: Never smoker Smoking Status: Never smoker Substance Use Type: does not use Exam Narrative Exam Narrative: GEN: Patient appears in mild distress. HEAD: No evidence of trauma, no raccoon/Gibson sign. NECK: Nontender, painless range of motion, trachea midline Negative for Nexus criteria, there is no midline line tenderness, distracting injury, altered mental status, neuro deficit, recent EtOH. EYES: PERRLA, EOMI ENT: External inspection normal, trachea is midline, TM's are normal no hemotypanum, Nares are clear, no septal hematoma, no dental or oral injury, airway is normal and with normal occlusion, No bony tenderness RESP: Chest is nontender and has symmetric movement, no ecchymosis, breath sounds are normal no crackles, wheezes or rales CVS: Heart sounds are normal, no murmur noted, No JVD. ABG/GI: Nontender, soft, normal bowel sounds, no distention, no organomegaly, pelvic rock is negative NEURO: Oriented AOx3, cranial nerves II through XII are intact, GCS is 15 PSYCH: Normal mood and affect SKIN: Intact, warm and dry, no crepitus and without decubitus BACK: No CVA tenderness, no vertebral tenderness, no step-off's, no crepitus EXT: Atraumatic, hips are nontender, no pedal edema. Initial Vital Signs Initial Vital Signs: Vital Signs Pulse Rate 93 H 07/05/22 08:02 Pulse Oximetry 97 07/05/22 08:02 Course Orders Ordered: ED Orders 07/05/22 08:33 CT head/brain wo con Stat Consultations Consultation #1: Spoke with Birgit Son patient guardian. Updated with workup and plan for discharge and medically cleared. Time: 09:51 Vital Signs Vital signs: Vital Signs - 8 hr 07/05/22 08:05 07/05/22 08:02 07/05/22 08:04 Temperature 98 F Pulse Rate 92 H 93 H 92 H Respiratory Rate 18 Blood Pressure 138/70 Pulse Oximetry 98 97 98 Oxygen Delivery Method Room Air 07/05/22 08:04 07/05/22 08:30 07/05/22 08:43 Temperature Pulse Rate 84 85 Respiratory Rate Blood Pressure 138/70 Pulse Oximetry 97 97 Oxygen Delivery Method 07/05/22 08:43 07/05/22 09:00 07/05/22 09:00 Temperature Pulse Rate 85 Respiratory Rate Blood Pressure 134/76 130/76 Pulse Oximetry 97 Oxygen Delivery Method 07/05/22 09:29 07/05/22 09:30 07/05/22 09:49 Temperature Pulse Rate 89 Respiratory Rate Blood Pressure 136/66 131/60 Pulse Oximetry 98 Oxygen Delivery Method MDM - Head Injury Imaging Data CT scan - head: Radiologist's Impression: Close Head CT (Signed) Saleem Cruz - 07/05/22 Launch?[address] [address] [address] Scan Report Signed Patient: Jeni Collins MR#: [id number] : 1975 Acct:[id number] Age/Sex: 46 / F Date of Service: 07/05/22 Loc: ED Accession Number: [id number] ?? Procedure: CT head/brain wo con Ordering Provider: Ijeoma Biggs D.O. PROCEDURE:? CT HEAD/BRAIN WO CON ? INDICATIONS:? hit head yesterday, blurred vision, cp ? TECHNIQUE:? Noncontrast 4.5 mm thick angled axial sections acquired from the foramen magnum to the vertex, with coronal and sagittal reformats.? For radiation dose reduction, the following was used:? automated exposure control, adjustment of mA and/or kV according to patient size.? ? COMPARISON:? None. ? FINDINGS:? Image quality:? Excellent.? ? CSF spaces:? Basal cisterns are patent.? No extra-axial fluid collections.? The ventricles are symmetric in size and shape.? ? Brain:? No intracranial bleeds or masses.? There is advanced mild to moderate cerebral volume loss for age, with resultant ventricular and sulcal prominence.? There are periventricular and deep white matter chronic small vessel ischemic changes.? There is intracranial internal carotid artery atherosclerosis.? ? Skull and face:? Calvarium and visualized facial bones appear intact, without suspicious lesions.? ? Sinuses:? Visualized sinuses and mastoids are clear.? ? IMPRESSION:? No acute intracranial finding. ? ? Dictated by: Saleem Cruz M.D. on 07/05/2022 at 8:56 ? ? Approved by: Saleem Cruz M.D. on 07/05/2022 at 8:57?? MDM Narrative Medical decision making narrative: This is a 46-year-old female history cerebral palsy and prior seizures, patient had a mechanical fall yesterday hit her head. She is had some complaint of blurred vision since then and mild headache. No other acute neurologic changes. Head CT was obtained which is negative. Patient is medically cleared. I spoke with her legal guardian update them. Patient may have mild concussion. She can use Tylenol for headache as needed. Discharge Plan Departure Patient Disposition: Home Clinical Impression: Concussion Instructions: Concussion Activity Restrictions/Additional Instructions: Your imaging today does not show any acute changes. I suspect you have a little bit of a concussion. You may take Tylenol up to a 1000 mg every 6 hours for headaches. You may continue home medications as prescribed. Please return for altered mental status, new confusion, persistent vomiting, new neurologic changes, seizure activity or other new or concerning symptoms.
--- NOTE | 2022-07-05 08:33 | DI.CT.S_ITS ---
PROCEDURE: CT HEAD/BRAIN WO CON INDICATIONS: hit head yesterday, blurred vision, cp TECHNIQUE: Noncontrast 4.5 mm thick angled axial sections acquired from the foramen magnum to the vertex, with coronal and sagittal reformats. For radiation dose reduction, the following was used: automated exposure control, adjustment of mA and/or kV according to patient size. COMPARISON: None. FINDINGS: Image quality: Excellent. CSF spaces: Basal cisterns are patent. No extra-axial fluid collections. The ventricles are symmetric in size and shape. Brain: No intracranial bleeds or masses. There is advanced mild to moderate cerebral volume loss for age, with resultant ventricular and sulcal prominence. There are periventricular and deep white matter chronic small vessel ischemic changes. There is intracranial internal carotid artery atherosclerosis. Skull and face: Calvarium and visualized facial bones appear intact, without suspicious lesions. Sinuses: Visualized sinuses and mastoids are clear. IMPRESSION: No acute intracranial finding. Dictated by: Saleem Cruz M.D. on 07/05/2022 at 8:56 Approved by: Saleem Cruz M.D. on 07/05/2022 at 8:57
--- NOTE | 2022-07-05 09:18 | PC.NURSE ---
Patient's emergency contact/court appointed guardian called and asked us to call her back with any updates or if any consent is needed. Birgit Son, contact info :[phone]
--- NOTE | 2022-07-05 09:28 | PC.NURSE ---
Court appointed guardian: Birgit Son called and updated her on ct head, and pt is returning to [facility] with dx of concussion [phone]
--- NOTE | 2022-07-05 09:30 | PC.NURSE ---
attempted to call [facility] to provide return report, no answer and unable to give return report. will try calling again. [employer] calling to set up transport back. printed out copy of md notes and ct report to send with patient back to [facility].
== END 2022-07-05 10:06 | disposition home or self-care (01) ==
PROVIDERS: Emergency Provider Emergency Medicine
DX: S06.0X0A Concussion without loss of consciousness, initial encounter (principal); W19.XXXA Unspecified fall, initial encounter
CPT/HCPCS: 70450; 99281; 99283

== ENCOUNTER → 2022-07-17 07:40 | Outpatient (ROUT) | payer MEDICARE, MEDICAID, SELFPAY ==
[2022-07-17 08:28] LABS: Add Manual Diff / Slide Review NO; Basophils Absolute Auto 0 /uL (0-100); Basophils Percent Auto 0.4 % (0-2); Eosinophils Absolute Auto 200 /uL (0-450); Eosinophils Percent Auto 1.7 % (2-4); Hemoglobin 12.5 g/dL (12.0-16.0); Lymphocytes Absolute Auto 3300 /uL (1100-4500); Lymphocytes Percent Auto 36.9 % (25-40); Mean Corpuscular HGB Conc 33.8 % (30-36); Mean Corpuscular Hemoglobin 30.7 PG (26-34); Mean Corpuscular Volume 90.8 fL (80-100); Monocytes Absolute Auto 900 /uL (0-900); Monocytes Percent Auto 9.8 % (3-14); Neutrophils Absolute Auto 4600 /uL (1500-7000); Neutrophils Percent Auto 51.2 % (50-75); Platelet Count 494 X10^3/uL (150-400); Red Blood Cell Count 4.07 X10^6/uL (4.0-5.2); Red Cell Distribution Width 13.7 % (11.6-14.8)
[2022-07-17 08:41] LABS: Alanine Aminotransferase 13 IU/L (<35); Albumin 4.1 g/dL (3.5-5.0); Albumin Globulin Ratio 1.4 (1.0-2.8); Alkaline Phosphatase 61 U/L (38-126); Aspartate Aminotransferase 19 IU/L (14-36); Bilirubin Total 0.4 mg/dL (0.2-1.3); Blood Urea Nitrogen 12 mg/dL (7-17); Carbon Dioxide 23 mmol/L (22-32); Chloride 102 mmol/L (98-107); Estimated Glomerular Filt Rate > 60 mL/min (>60); Globulin 2.9 g/dL (1.7-4.1); Glucose 101 mg/dL (70-100); HEMOLYSIS < 15 (0-50); Sodium 136 mmol/L (137-145)
[2022-07-18 06:32] LABS: Valproic Acid (Depakene) Total 72 ug/mL (50-100)
== END ==
PROVIDERS: Visit Provider Nurse Practitioner Family
DX: G40.909 Epilepsy, unspecified, not intractable, without status epilepticus (principal); Z79.899 Other long term (current) drug therapy
CPT/HCPCS: 36415; 80053; 80164; 85025

== ENCOUNTER → 2022-08-03 15:22 | Outpatient (ROUT) | payer MEDICARE, MEDICAID, SELFPAY ==
[2022-08-03 16:10] LABS: Appearance Urine UA TURBID; Bilirubin Urine UA NEGATIVE (NEGATIVE); Color Urine UA YELLOW; Glucose Urine UA TRACE g/dL (Negative); Ketones Urine UA NEGATIVE (NEGATIVE); Leukocyte Esterase Urine UA 2+ (NEGATIVE); Nitrite Urine UA POSITIVE (Negative); Occult Blood Urine UA 3+ (Negative); Protein Urine UA 3+ (Negative); Specific Gravity Urine UA 1.025 (1.000-1.035); Urobilinogen Urine UA 0.2 E.U./dL (0.2)
[2022-08-03 16:11] LABS: Amorphous Sediment Urine 1+; RBC Urine 5-10/HPF (0-5/HPF); Squamous Epithelial Cell Urine 1-5 /HPF (0-5/HPF); WBC Urine >100/HPF (0-5/HPF)
[2022-08-03 16:12] LABS: Bacteria Urine Many (>30); Culture Indicated Urine Specimen Cultured; Mucus Urine 3+ (Negative)
== END ==
PROVIDERS: Visit Provider Nurse Practitioner Family
DX: R10.9 Unspecified abdominal pain (principal); R30.0 Dysuria; N39.498 Other specified urinary incontinence
CPT/HCPCS: 81001; 87077; 87086; 87186

== ENCOUNTER 2022-11-05 00:40 | Emergency (ER) | payer MEDICARE, MEDICAID, SELFPAY ==
[2022-11-05 00:44] VITALS: BP 144/86; PULSE 101; RESP 16; TEMP 37.3; O2SAT 98
[2022-11-05 01:12] LABS: Alanine Aminotransferase 29 IU/L (<35); Albumin 4.3 g/dL (3.5-5.0); Albumin Globulin Ratio 1.4 (1.0-2.8); Alkaline Phosphatase 69 U/L (38-126); Aspartate Aminotransferase 31 IU/L (14-36); Bilirubin Total 0.8 mg/dL (0.2-1.3); Blood Urea Nitrogen 16 mg/dL (7-17); Calcium 9.4 mg/dL (8.4-10.2); Carbon Dioxide 28 mmol/L (22-32); Chloride 99 mmol/L (98-107); Estimated Glomerular Filt Rate > 60 mL/min (>60); Globulin 3.1 g/dL (1.7-4.1); Glucose 117 mg/dL (70-100); HEMOLYSIS 50 (0-50); Lipase 57 U/L (23-300); Potassium 4.1 mmol/L (3.4-5.1); Sodium 136 mmol/L (137-145); Total Protein 7.4 g/dL (6.3-8.2)
[2022-11-05 01:18] LABS: Add Manual Diff / Slide Review NO; Basophils Absolute Auto 0 /uL (0-100); Basophils Percent Auto 0.3 % (0-2); Eosinophils Absolute Auto 200 /uL (0-450); Eosinophils Percent Auto 1.1 % (2-4); Hematocrit 38.2 % (36-46); Hemoglobin 12.8 g/dL (12.0-16.0); Lymphocytes Absolute Auto 3900 /uL (1100-4500); Lymphocytes Percent Auto 28.8 % (25-40); Mean Corpuscular HGB Conc 33.6 % (30-36); Mean Corpuscular Volume 89.3 fL (80-100); Monocytes Absolute Auto 1500 /uL (0-900); Monocytes Percent Auto 11.5 % (3-14); Neutrophils Absolute Auto 7800 /uL (1500-7000); Neutrophils Percent Auto 58.3 % (50-75); Platelet Count 484 X10^3/uL (150-400); Red Blood Cell Count 4.27 X10^6/uL (4.0-5.2); Red Cell Distribution Width 14.1 % (11.6-14.8); White Blood Cell Count 13.4 X10^3/uL (4.5-11.0)
--- NOTE | 2022-11-05 01:37 | ED_ITS ---
HPI - Abdominal Pain General Chief Complaint: Abdominal Pain Stated Complaint: ABD Pain Time Seen by Provider: 11/05/22 01:13 Source: patient and EMS Mode of arrival: EMS History of Present Illness HPI narrative: 47-year-old female nonsmoker with history of cerebral palsy presents by EMS for evaluation of abdominal pain and decreased bowel movements for the past 3 days. She had been given milk of magnesia earlier today without success. She is had no fever or chills and is nauseated but denies vomiting. Her bowel movements are significantly decreased and she is unclear if she has been passing gas or not. She has no chest pain or shortness of breath. She is had no fever or chills. She denies dysuria, frequency or urgency. She denies history of the same Related Data Allergies Allergy/AdvReac Type Severity Reaction Status Date / Time No Known Drug Allergies Allergy Verified 01/22/22 12:34 Review of Systems Review of Systems Narrative: GENERAL: Denies chills, fatigue, malaise, fever, sweats. HEENT: Denies sinus pain, ear pain, sore throat, difficulty swallowing, dizziness. RESPIRATORY: Denies dyspnea, cough, wheezing, hemoptysis, sputum. CARDIOVASCULAR: Denies chest pain, palpitations, orthopnea, edema, GASTROINTESTINAL: See HPI : Denies dysuria, frequency, incontinence, hematuria, urinary retention. MUSCULOSKELETAL: denies weakness, joint pain, or bony pain SKIN: Denies rash, skin lesions, or other NEUROLOGIC: Denies weakness, headache, numbness, change in speech, confusion, seizures, incoordination. PSYCHIATRIC: No concerning psychosocial issues. 12 point review of systems is negative except for those stated above Patient History Social History Smoking Status: Never smoker Smoking Status: Never smoker Substance Use Type: does not use Exam Narrative Exam Narrative: GENERAL: [47] year old patient appears stated age. Well-developed patient, in mild distress. HEAD: Atraumatic. Normocephalic. EYES: Pupils equal round and reactive. Extraocular motions intact. No scleral icterus. No injection or drainage. ENT: Nose without bleeding, purulent drainage. Throat without erythema, tonsillar hypertrophy or exudate. Airway patent. NECK: Trachea midline. Non tender CARDIOVASCULAR: Regular rate and rhythm without murmurs, gallops, or rubs. RESPIRATORY: Clear to auscultation. Breath sounds equal bilaterally. No wheezes, rales, or rhonchi. GASTROINTESTINAL: Abdomen soft, generalized tenderness, bowel sounds are present but distant EXTREMITIES: No edema or joint tenderness. BACK: Nontender without deformity or crepitance. No flank tenderness. NEURO: Cranial nerves 2-12 grossly intact SKIN: No rash or erythema of visible areas Initial Vital Signs Initial Vital Signs: Vital Signs Temperature 99.1 F 11/05/22 00:44 Pulse Rate 101 H 11/05/22 00:44 Respiratory Rate 16 11/05/22 00:44 Blood Pressure 144/86 H 11/05/22 00:44 Pulse Oximetry 98 11/05/22 00:44 Oxygen Delivery Method 11/05/22 00:44 Course Orders Ordered: ED Orders 11/05/22 00:40 Covid-19 + FLU A/B + RSV - PCR Stat 11/05/22 00:53 Complete Blood Count AUTO DIFF Stat Comprehensive Metabolic Panel Stat Lipase Stat 11/05/22 01:39 XR abdomen min 2V Stat 11/05/22 02:24 CT abdomen pelvis w con Stat Discontinued Medications Sodium Chloride (Normal Saline 0.9%) 1,000 mls @ 1,000 mls/hr IV BOLUS ONE Stop: 11/05/22 02:38 Last Infusion: 11/05/22 03:26 Dose: 0 mls/hr Documented By: Admin: 11/05/22 02:20 Dose: 1,000 mls/hr Documented By: PETER Ondansetron HCl (Ondansetron 4 Mg Odt Prepack) 1 bottle MISC SEEINSTR ONE Stop: 11/05/22 04:07 Last Admin: 11/05/22 04:48 Dose: 1 bottle Documented By: PETER Vital Signs Vital signs: Vital Signs - 8 hr 11/05/22 00:44 11/05/22 05:23 Temperature 99.1 F 98.6 F Pulse Rate 101 H 102 H Respiratory Rate 16 16 Blood Pressure 144/86 H 131/73 Pulse Oximetry 98 98 Oxygen Delivery Method Room Air Room Air MDM - Abdominal Pain Lab Data Result diagrams: 11/05/22 00:53 11/05/22 00:53 Labs: Lab Results 11/05/22 11/05/22 11/05/22 Range/Units 00:40 00:53 00:53 WBC 13.4 H (4.5-11.0) X10^3/uL RBC 4.27 (4.0-5.2) X10^6/uL Hgb 12.8 (12.0-16.0) g/dL Hct 38.2 (36-46) % MCV 89.3 (80-100) fL MCH 30.0 (26-34) PG MCHC 33.6 (30-36) % RDW 14.1 (11.6-14.8) % Plt Count 484 H (150-400) X10^3/uL Neut % (Auto) 58.3 (50-75) % Lymph % (Auto) 28.8 (25-40) % Garfield % (Auto) 11.5 (3-14) % Eos % (Auto) 1.1 L (2-4) % Baso % (Auto) 0.3 (0-2) % Neut # (Auto) 7800 H (8017-2095) /uL Lymph # (Auto) 3900 (3643-6128) /uL Garfield # (Auto) 1500 H (0-900) /uL Eos # (Auto) 200 (0-450) /uL Baso # (Auto) 0 (0-100) /uL Sodium 136 L (137-145) mmol/L Potassium 4.1 (3.4-5.1) mmol/L Chloride 99 (98-107) mmol/L Carbon Dioxide 28 (22-32) mmol/L BUN 16 (7-17) mg/dL Creatinine 0.50 L (0.52-1.04) mg/dL Estimated GFR > 60 (>60) mL/min BUN/Creatinine Ratio 32.0 H (6-22) Glucose 117 H (70-100) mg/dL Calcium 9.4 (8.4-10.2) mg/dL Total Bilirubin 0.8 (0.2-1.3) mg/dL AST 31 (14-36) IU/L ALT 29 (<35) IU/L Alkaline Phosphatase 69 (38-126) U/L Total Protein 7.4 (6.3-8.2) g/dL Albumin 4.3 (3.5-5.0) g/dL Globulin 3.1 (1.7-4.1) g/dL Albumin/Globulin Ratio 1.4 (1.0-2.8) Lipase 57 (23-300) U/L SARS-CoV-2 (PCR) Negative (Negative) Influenza A (RT-PCR) Flu a negative (NEGATIVE) Influenza B (RT-PCR) Flu b negative (NEGATIVE) RSV (PCR) Negative (Negative) Imaging Data CT scan - abdomen/pelvis: Radiologist's Impression: Possible enteritis, otherwise unremarkable MDM Narrative Medical decision making narrative: 47-year-old female with history of cerebral palsy presents with 3 days of decreased bowel movements and abdominal pain Multiple etiologies for patient's symptoms considered including: [Enteritis, laura wel obstruction, gallbladder disease versus other Abdominal series shows multiple air-fluid levels, myself and Radiology question the possibility of bowel obstruction. CT of the abdomen and pelvis is ordered which suggest against this diagnosis, suggesting possible enteritis but otherwise unremarkable study There is no notable epigastric or right upper quadrant pain, LFTs and bilirubin are unremarkable and no abnormal findings on imaging to suggest gallbladder disease at this time] Patient's symptoms improved over duration of stay with above-stated therapies. Findings and discharge diagnosis discussed with patient/family followed by verbalization of understanding Return precautions discussed with patient/family whom verbalize understanding. Discharge Plan Departure Patient Disposition: Home Clinical Impression: Abdominal pain Instructions: DI for Abdominal Pain-Adult Activity Restrictions/Additional Instructions: *You have been diagnosed with [abdominal pain] * As we discussed your history and physical exam as well as labs and imaging are very reassuring. There is no evidence of any severe diagnoses that would require a specific or immediate intervention such as bowel obstruction or infection *What to do: *Please continue to take your regular medications as directed. *Please follow up with your primary care provider in 2-3 days, call for an ap pointment. Let them know you were seen in the Emergency Department and that we ask that you be seen in follow up. We will electronically transmit a record of today's note if your PCP is in our system *Please consider a clear liquid diet for the next 24-48 hours and then slowly advance to regular as tolerated. Also, try to avoid alcohol, nicotine, caffeine, spicy, acidic or fatty foods as this may worsen your symptoms *If you do not have a primary care provider please contact the [facility] Resource line at [phone]. They will ask some questions about your medical history and help get you set up with a doctor in the community. *Return to Emergency Department if you should have any new, worsening or concerning symptoms, such as [fever greater than 101 F, shaking chills, worsenin g pain, persistent vomiting or other bothersome symptoms] Visit Report Forms: Patient Portal/API
--- NOTE | 2022-11-05 01:39 | DI.RAD.S_ITS ---
PROCEDURE: XR ABDOMEN MIN 2V INDICATIONS: abdominal pain, decreased BM TECHNIQUE: 2 views of the abdomen were acquired. COMPARISON: None. FINDINGS: Surgical changes and devices: None. Bowel: No pneumoperitoneum. The bowel gas pattern demonstrates scattered air-fluid levels within nondistended small and large bowel loops. Soft tissues: No suspicious abdominal calcifications. Bones: No suspicious bony abnormalities. IMPRESSION: 1. Nonspecific bowel gas pattern with scattered air fluid levels in small and large bowel loops without definite abnormal distention. The findings are suggestive of an ileus but the differential includes a partial or early obstruction. Dictated by: Nahid Carson M.D. on 11/05/2022 at 2:06 Approved by: Nahid Carson M.D. on 11/05/2022 at 2:07
[2022-11-05 01:56] LABS: COVID-19 CEPHEID 4-PLEX PCR Negative (Negative); Influenza A - CEPHEID Flu A NEGATIVE (NEGATIVE); Influenza B - CEPHEID Flu B NEGATIVE (NEGATIVE); Respiratory Syncytial Virus Negative (Negative)
[2022-11-05] MEDS: SODIUM CHLORIDE 0.9% 1,000 ML 1000 ML IV (02:20)
--- NOTE | 2022-11-05 02:24 | DI.CT.S_ITS ---
PROCEDURE: CT ABDOMEN PELVIS W CON INDICATIONS: severe abdominal pain, no BM, possible SBO on Xray TECHNIQUE: After the administration of intravenous contrast, axial sections acquired from the lung bases to the pubic symphysis. Coronal and sagittal reformats were performed. For radiation dose reduction, the following was used: automated exposure control, adjustment of mA and/or kV according to patient size. COMPARISON: [facility], , XR ABDOMEN MIN 2V, 11/05/2022, 1:41. FINDINGS: Image quality: Excellent. Lung bases: Bibasilar atelectasis. Heart: No significant findings. ABDOMEN: Liver: Unremarkable. Gallbladder: Unremarkable. Biliary ducts: Unremarkable. Pancreas: Unremarkable. Spleen: Unremarkable. Adrenal Glands: Unremarkable. Kidneys and Ureters: Unremarkable. Stomach and Bowel: Visualized stomach is unremarkable. No evidence for bowel obstruction. No abnormal wall thickening of the visualized small bowel or colon. However, multiple fluid-filled loops of small bowel and colon noted throughout the abdomen. Moderate fecal burden seen in the distal sigmoid colon and rectum. The appendix is not definitively visualized but no secondary findings for acute appendicitis. Peritoneum: No abnormal intraperitoneal fluid. No free air. Ventral Wall: No hernias. Abdominal Nodes: No retroperitoneal or mesenteric adenopathy by size criteria. Vessels: Aorta and inferior vena cava are normal in size. PELVIS: Pelvic Organs: Unremarkable. Bladder: Unremarkable. Pelvic Nodes: No enlarged lymph nodes. Miscellaneous: No hernias are seen. Bones: Unremarkable. IMPRESSION: Findings compatible with possible enteritis/colitis. Otherwise, no acute abnormalities identified. No evidence for bowel obstruction. Moderate amount of fecal material seen in the distal sigmoid colon and rectum. No significant discrepancy with the cage shift manager radiology preliminary report. Dictated by: Jose Steinberg M.D. on 11/05/2022 at 7:33 Approved by: Jose Steinberg M.D. on 11/05/2022 at 7:38
[2022-11-05] MEDS: ONDANSETRON 4 MG ODT PREPACK 1 BOTTLE MISC (04:48)
[2022-11-05 05:23] VITALS: BP 131/73; PULSE 102; RESP 16; TEMP 37; O2SAT 98
== END 2022-11-05 05:25 | disposition home or self-care (01) ==
PROVIDERS: Emergency Provider Emergency Medicine
DX: R10.9 Unspecified abdominal pain (principal); R19.4 Change in bowel habit; Z20.822 Contact with and (suspected) exposure to COVID-19
CPT/HCPCS: 0241U; 36415; 74019; 74177; 80053; 83690; 85025; 99284; Q9967

== ENCOUNTER 2023-01-20 09:11 | Emergency (ER) | payer MEDICARE, MEDICAID, SELFPAY ==
[2023-01-20] VITALS (7 sets, daily range): BP systolic 127–160; BP diastolic 70–77; PULSE 80–92; RESP 18; O2SAT 96–100
--- NOTE | 2023-01-20 09:23 | DI.RAD.S_ITS ---
PROCEDURE: XR KNEE LT 3V INDICATIONS: Trauma, pain TECHNIQUE: 3 views of the knee were acquired. COMPARISON: None. FINDINGS: Bones: No fractures or dislocations. No suspicious bony lesions. Soft tissues: No joint effusion. No suspicious soft tissue calcifications. IMPRESSION: Unremarkable left knee radiographs Approved by: Conor Verde M.D. on 01/20/2023 at 9:26
--- NOTE | 2023-01-20 09:29 | ED.FALL ---
HPI - Fall General Chief Complaint: Fall Stated Complaint: GLF Time Seen by Provider: 01/20/23 09:29 Source: patient and EMS Mode of arrival: EMS Limitations: no limitations History of Present Illness HPI Narrative: Is a 47-year-old female with history of cerebral palsy, epileptic spasms, depressive disorder, dyslipidemia who is a full-time resident at [facility]. Patient had a witnessed ground level fall today fell to her knees after tripping on her feet, landed on her knees and is complaining of right knee pain. Patient was able to ambulate afterwards. Patient requested to go to the emergency department for evaluation per report. Patient states she was walking, she states she tripped over her feet. She states she landed on her knees. She indicates only her left knee is hurting. She can movement but states there is discomfort over the area of the kneecap. She denies any new injuries, no new weakness, numbness or tingling that is different from her normal baseline. Patient denies hitting her head she denies neck pain, no chest or back pain, no shortness of breath, no abdominal or flank pain. She denies any nausea or vomiting. No other new GI or urinary symptoms. She states no medication changes from her last visit. She denies any recent surgeries. No known drug allergies. She denies tobacco, alcohol or illicit. Related Data Allergies Allergy/AdvReac Type Severity Reaction Status Date / Time No Known Drug Allergies Allergy Verified 01/20/23 09:12 Review of Systems Review of Systems ROS Unobtainable: All systems reviewed & are unremarkable except as noted in HPI and below Patient History Social History Smoking Status: Never smoker Smoking Status: Never smoker Substance Use Type: does not use Exam Narrative Exam Narrative: GENERAL: Alert and oriented x three, female in mild distress. HEENT: Head normocephalic, atraumatic, EOMI, pupils reactive, face symmetric, moist mucous membranes NECK: Supple, full range of motion, no cervical tenderness. CARDIOVASCULAR: Regular rate and rhythm without murmurs, rubs or gallops. RESPIRATORY: Breath sounds equal bilaterally, no wheezes rales or rhonchi. ABDOMEN: Soft, nontender. Normoactive bowel sounds all 4 quadrants. No guarding or rebound, rigidity, no mass : No CVA tenderness EXTREMITIES: no clubbing or edema. Neurovascularly intact. Patient has some slight erythema over the patella, she is some slight tenderness over the patella itself. No deformity appreciated. She does not have any tenderness of the femur, tibia or fibula, no bony tenderness throughout the rest of the leg. She has normal range of motion with negative joint laxity testing. Patient does not have any effusion, no ecchymosis, lacerations or abrasions. Patient has 2+ dorsalis pedis. Patient's feet are held slightly plantar flexion. She does have some motion in her lower extremities but has had some equal but slightly decreased strength bilaterally. No bony tenderness with appropriate range of motion of upper extremities. NEUROLOGICAL: Cranial nerves II through XII grossly intact. Moving all extremities SKIN: Warm, dry, no petechiae, no rashes or lesions. Initial Vital Signs Initial Vital Signs: Vital Signs Pulse Rate 92 H 01/20/23 09:12 Respiratory Rate 18 01/20/23 09:12 Blood Pressure 160/70 H 01/20/23 09:12 Pulse Oximetry 100 01/20/23 09:12 Oxygen Delivery Method 01/20/23 09:12 Scores GCS Ervin coma scale eye opening: Spontaneous [place] coma scale verbal response: Orientated Ervin coma scale motor response: Obey commands Ervin coma scale total score: 15 Course Orders Ordered: ED Orders 01/20/23 09:23 XR knee LT 3V Stat Vital Signs Vital signs: Vital Signs - 8 hr 01/20/23 12:19 Pulse Rate 88 Respiratory Rate 18 Blood Pressure 132/74 Pulse Oximetry 97 Oxygen Delivery Method Room Air MDM - Fall Imaging Data Extremity x-ray #1: Radiologist's Impression: [address] [address] XRay Report Signed Patient: Jeni Collins MR#: [id number] : 1975 Acct:[id number] Age/Sex: 47 / F Date of Service: 01/20/23 Loc: ED Accession Number: [id number] ?? Procedure: XR knee LT 3V Ordering Provider: Ijeoma Biggs D.O. PROCEDURE:? XR KNEE LT 3V ? INDICATIONS:? Trauma, pain ? TECHNIQUE:? 3 views of the knee were acquired.? ? COMPARISON:? None. ? FINDINGS:? ? Bones:? No fractures or dislocations.? No suspicious bony lesions.? ? Soft tissues:? No joint effusion.? No suspicious soft tissue calcifications.? ? ? IMPRESSION:? Unremarkable left knee radiographs ? ? ? Approved by: Conor Verde M.D. on 01/20/2023 at 9:26? [facility] Narrative Medical decision making narrative: This is a 47-year-old female with ground level fall, patient has known cerebral palsy states she tripped over feet landed on her knees and has pain in her left knee. She is a small abrasion no obvious deformity, patient has mild pain with passive range of motion but full range of motion. No ecchymosis or other skin changes. Patient defers anything for pain other than an icepack. No other injuries appreciated. X-ray of the knee was obtained is negative. Discharge Plan Departure Patient Disposition: Home Clinical Impression: Knee pain, left, Fall from ground level Activity Restrictions/Additional Instructions: Follow-up in the next week if you are having persistent pain or symptoms. You may weightbear as tolerated. You may take Tylenol up to a 1000 mg every 6 hours as needed for pain. Elevated affected body part to decrease swelling. OK to use ice pack on the affected body part. Use for 15-20 minutes each time, for 5-6x per day. If you develop worsening pain, numbness, tingling, discoloration of the affected body part either see your doctor for an urgent re-assessment, or return to the Emergency Department. Return to the Emergency Department for any new or worsening symptoms. Stand Alone Forms: Patient Portal/API
== END 2023-01-20 12:00 | disposition home or self-care (01) ==
PROVIDERS: Emergency Provider Emergency Medicine
DX: M25.562 Pain in left knee (principal); M25.561 Pain in right knee; W18.30XA Fall on same level, unspecified, initial encounter
CPT/HCPCS: 73562; 99281; 99283

== ENCOUNTER → 2024-12-30 07:59 | Outpatient (ROUT) | payer MEDICARE, MEDICAID, SELFPAY ==
[2024-12-30 08:12] LABS: Hemoglobin 13.1 g/dL (12.0-16.0); Mean Corpuscular HGB Conc 34.3 % (30-36); Mean Corpuscular Hemoglobin 31.5 PG (26-34); Mean Corpuscular Volume 91.6 fL (80-100); Platelet Count 422 X10^3/uL (150-400); Red Blood Cell Count 4.15 X10^6/uL (4.0-5.2); Red Cell Distribution Width 14.4 % (11.6-14.8); White Blood Cell Count 10.4 X10^3/uL (4.5-11.0)
[2024-12-30 08:23] LABS: BUN Creatinine Ratio 19.2 (6-22); Blood Urea Nitrogen 10 mg/dL (7-17); Calcium 9.4 mg/dL (8.4-10.2); Carbon Dioxide 26 mmol/L (22-32); Chloride 101 mmol/L (98-107); Cholesterol 200 mg/dL (140-199); Estimated Glomerular Filt Rate > 60 mL/min (>60); Glucose 88 mg/dL (70-100); HDL Cholesterol 47 mg/dL (40-60); HEMOLYSIS < 15 (0-50); LDL Cholesterol Calculated 125 mg/dL (<100); Potassium 4.3 mmol/L (3.4-5.1); Sodium 133 mmol/L (137-145); Triglycerides 138 mg/dL (35-150)
[2024-12-31 04:36] LABS: Valproic Acid (Depakene) Total 74 ug/mL (50-100)
== END ==
PROVIDERS: Visit Provider Internal Medicine
DX: I10 Essential (primary) hypertension (principal); G40.822 Epileptic spasms, not intractable, without status epilepticus; E78.5 Hyperlipidemia, unspecified
CPT/HCPCS: 36415; 80048; 80061; 80164; 85027

== ENCOUNTER 2025-08-26 07:38 | Emergency (ER) | payer MEDICARE, MEDICAID, SELFPAY ==
[2025-08-26] VITALS (7 sets, daily range): BP systolic 133–143; BP diastolic 73–93; PULSE 73–88; RESP 14–16; TEMP 36.6; O2SAT 96–98; BMI 26.6
--- NOTE | 2025-08-26 07:49 | DI.RAD.S_ITS ---
PROCEDURE: XR HIP W PEL IF DONE RT 2V INDICATIONS: right lateral hip and sacral pain blunt trauma x 12 days TECHNIQUE: AP pelvis with lateral view(s) of the right hip(s). COMPARISON: None. FINDINGS: Bones: No fractures or dislocations. Pelvic ring appears intact. No suspicious bony lesions. Mild narrowing of both hip joints with associated osteophytes. Soft tissues: The visualized bowel gas pattern is normal. No suspicious soft tissue calcifications. Probable dystrophic calcifications are noted in the right hip joint. IMPRESSION: No acute bony abnormality. Dictated by: Thais Medina M.D. on 08/26/2025 at 8:28 Approved by: Thais Medina M.D. on 08/26/2025 at 8:35
--- NOTE | 2025-08-26 07:50 | ED_ITS ---
HPI - Extremity Injury (Lower) General Chief Complaint: Extremity Injury, Lower Stated Complaint: Right hip hematoma 12 days History of Present Illness HPI Narrative: 50-year-old female history of cerebral palsy, resident of [facility], presents via EMS for evaluation of 12 days of right hip pain. Patient reports ran into the bed 12 days ago and has had a bruise over the area and pain since that time. She has been taking Tylenol and ibuprofen without any relief. She has been able to walk but putting weight on her leg makes the pain worse. She recalls getting an x-ray done at [place] and was told that everything looked okay. She has an appointment later today with a physician but decided to come in because of increasing pain for the last few days Related Data Previous Rx's ?Medication ?Instructions ?Recorded ketorolac 10 mg tablet 10 mg PO BID 5 days #10 tabs 08/26/25 Allergies Allergy/AdvReac Type Severity Reaction Status Date / Time No Known Drug Allergies Allergy Verified 07/25/25 18:42 Review of Systems Review of Systems Narrative: Pertinent ROS obtained and negative except as stated in HPI Exam Initial Vital Signs Initial Vital Signs: Vital Signs Pulse Rate 83 08/26/25 07:43 Blood Pressure 140/75 08/26/25 07:43 Pulse Oximetry 97 08/26/25 07:43 Constitutional: Well appearing, no acute distress Head: NCAT Cardiovascular: normal rate, appears well perfused. Right foot is warm with less than 2nd capillary refill Pulmonary: normal effort Extremities: No LE edema. Focused examination of the right lower extremity there is normal active and passive range of motion at the right hip knee and ankle. There is no external signs of trauma aside from a roughly 5 cm area of subacute ecchymosis without any induration or erythema. There is local tenderness here as well as over the lateral hip and in right sacral area. No midline tenderness of the lumbar spine. Skin: warm and dry Neurological: Alert Course Orders Ordered: Discontinued Medications Ketorolac Tromethamine (Ketorolac 30 Mg/Ml Vial) 30 mg IM NOW ONE Stop: 08/26/25 07:50 Last Admin: 08/26/25 08:05 Dose: 30 mg Documented By: KENY Lidocaine (Lidocaine 5% Patch) 1 each TOP NOW ONE Stop: 08/26/25 07:50 Last Admin: 08/26/25 08:05 Dose: 1 each Documented By: EB Vital Signs Vital signs: Vital Signs - 8 hr 08/26/25 07:43 08/26/25 07:43 08/26/25 07:44 Temperature 97.8 F Pulse Rate 83 88 Respiratory Rate 16 Blood Pressure 140/75 134/74 Pulse Oximetry 97 97 Oxygen Delivery Method Room Air 08/26/25 08:00 08/26/25 08:00 08/26/25 08:18 Temperature Pulse Rate 76 81 Respiratory Rate Blood Pressure 133/77 Pulse Oximetry 96 97 Oxygen Delivery Method 08/26/25 08:18 08/26/25 08:30 08/26/25 08:30 Temperature Pulse Rate 75 Respiratory Rate Blood Pressure 141/80 H 137/73 Pulse Oximetry 96 Oxygen Delivery Method 08/26/25 09:00 08/26/25 09:00 Temperature Pulse Rate 81 Respiratory Rate Blood Pressure 143/93 H Pulse Oximetry 96 Oxygen Delivery Method MDM - Extremity Injury (Lower) Medical Records Medical records narrative: In brief, this is a 42-year-old female with history of cerebral palsy who presents via EMS for evaluation of right hip pain and bruising that has been worsening over the last few days she says, initial injury sustained about 12 days ago occurred after she ?ran into? her bed. She has been able to bear weight. In chart review I see patient was seen and evaluated in this emergency department on July 25 after a separate incident/ground level fall. Workup at that time was negative. On arrival to the emergency department, the patient is well-appearing in no acute distress. Exam is pertinent for: Well-perfused right lower extremity. There is tenderness reported to palpation over the right lateral hip and sacral area rightward of the midline but patient does not react to palpation. She has full passive and active range of motion of the right hip. There is an area of ecchymosis as described above that appears to be healing Differential diagnoses considered but not limited to: Ecchymosis, no palpable hematoma. No signs symptoms of active extravasation clinically. The the right lower extremities well-perfused and I do not suspect an arterial injury. I had considered occult fracture. Patient reported to have x-ray although unfortunately do not have access to this. She is ambulatory which is less suggestive of clinically significant fracture. Exam is not consistent with septic arthritis or gout. Initial treatment plan includes: X-ray of the right hip and pelvis, lidocaine patch, IM Toradol Imaging pertinent for: X-ray shows some dystrophic calcifications in the right hip but no fractures or dislocations. On reassessment at 0950 the patient is asleep. When I wake her she says that her pain is improved after Toradol. Did offer a prescription for this and we will refer to primary care for further evaluation and workup. Discussed possibility of topical therapy such as heat or ice & recommended seek referral to physical therapy Return precautions discussed and provided prior to discharge Pertinent scoring tools used to guide clinical decision making, if applicable: Discharge Plan Departure Patient Disposition: Home Clinical Impression: Acute pain of right hip, Ecchymosis Activity Restrictions/Additional Instructions: X-ray of the right hip and pelvis did not show any fractures today. There were some calcifications noted in the hip joint which could be contributing to more chronic type of pain. In any case, I would like you to follow up with your family doctor regarding your symptoms. They may want to do further testing or refer you to physical therapy. For pain please take Toradol as prescribed (avoid other NSAIDs such as ibuprofen while taking this), acetaminophen 1000 mg every 6 hours. You may find topical therapy such as heat/ice, menthol, lidocaine or diclofenac ointment helpful Prescriptions: New ketorolac 10 mg tablet 10 mg PO BID 5 Days Qty: 10 0RF Stand Alone Forms: Patient Portal/API
--- NOTE | 2025-08-26 07:50 | PC.NURSE ---
Pt reports continued pain in R hip after bumping it on her bedframe at home. Reports she takes Ibuprofen for pain but unable to state when she last took medication.
--- NOTE | 2025-08-26 07:53 | PC.NURSE ---
Reports 10/10 pain both when bruise is palpated and not palpated.
--- NOTE | 2025-08-26 07:58 | PC.NURSE ---
BIB ambulance after pt reports continued pain after bruising her R posterior hip on bedframe at home. Yellow and purple bruising noted at injury. Pt reports tender to touch and 10/10 pain. Pt takes Ibuprofen at home but reports not taking it today. Reports she cannot remember when she last took it. Pt denied any other pain.
[2025-08-26] MEDS: LIDOCAINE 5% PATCH 1 EACH TOP (08:05)
[2025-08-26] MEDS: KETOROLAC 30 MG/ML VIAL IM (08:05)
--- NOTE | 2025-08-26 10:37 | PC.NURSE ---
Pt brief changed at this time by this RN.
== END 2025-08-26 10:51 | disposition home or self-care (01) ==
PROVIDERS: Emergency Provider Student in an Organized Health Care Education/Training Program
DX: M25.551 Pain in right hip (principal); S70.01XA Contusion of right hip, initial encounter
CPT/HCPCS: 73502; 96372; 99283; J1885